=== PATIENT | female | born 1980 | race Caucasian/White ===

== ENCOUNTER → 2018-03-22 | Outpatient (CLI) | payer OTHER | LOC: M.RAD 14:18 | DX: Z12.31 Encounter for screening mammogram for malignant neoplasm of breast (principal) ==

== ENCOUNTER → 2018-10-09 | Outpatient (CLI) | payer OTHER | LOC: M.MRI 15:46 | DX: N63.11 Unspecified lump in the right breast, upper outer quadrant (principal) ==

== ENCOUNTER → 2018-10-22 | Outpatient (CLI) | payer OTHER | LOC: M.ULTRA 13:17 | DX: N63.11 Unspecified lump in the right breast, upper outer quadrant (principal) ==

== ENCOUNTER → 2018-10-29 | Outpatient (CLI) | payer OTHER ==
--- NOTE | 2018-10-31 11:08 | PATH ---
[address] [address] PATHOLOGY RPT PROCEDURE Name: COCO ARZOLA Room: [facility] Paula#: [id number] Admission: 10/29/18 Date of : 84 Discharge: Report #: [id number] Path Case #: [id number] [facility] Accession Number: [id number] . 01 Material submitted: . breast - RIGHT BREAST, 9:00, 5CMFN. Modifiers: right, 9:00 . 01 Clinical history: . 1.59 x 1.35 x 0.84 cm 9:00 5 cm from nipple . 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 See comment. (RENÉE:pit 10/30/2018) QTP/10/31/2018 . 02 Comment: Reviewed with Dr. Ana Rahman who agrees with the diagnosis. (RENÉE:[facility] 10/30/2018) . 02 Electronically signed: . Pollo Davis MD, Pathologist NPI- [id number] . 01 Gross description: . The specimen is received in formalin, labeled "Coco Arzola, right breast 9:00 5 cm from nipple". Received are multiple needle cores of fibrofatty tissue measuring 1.3 x 0.7 x 0.2 cm in aggregate dimensions. The specimen is submitted entirely in cassettes A1 through A3. The cold ischemic time is 4 minutes. The total formalin fixation time is 12 hours and 6 minutes. (CAA; 10/29/2018) QAC/QAC . 02 Pathologist provided ICD-10: N60.81 . 02 CPT . 822469 Specimen Comment: A courtesy copy of this report has been sent to Specimen Comment: [phone], , , . Specimen Comment: Report sent to ,DR CERVANTES,DR PAIGE / DR GARCIA Performed at: [address], [place], [place] [id number] MD Gilberto Beltran MD Phone: [phone] Performed at: 02 [place] [address] PATHOLOGY RPT PROCEDURE Name: COCO ARZOLA [id number] Admission: 10/29/18 Date of : 84 Discharge: Report #: [id number] Path Case #: [id number] [address], [place], [place] [id number] MD Pollo Davis MD Phone: [phone]
== END | disposition home or self-care (01) ==
LOC: M.ULTRA 08:29
DX: N60.81 Other benign mammary dysplasias of right breast (principal); Z88.8 Allergy status to other drugs, medicaments and biological substances

== ENCOUNTER → 2019-04-15 | Outpatient (CLI) | payer OTHER | LOC: M.RAD 13:57 | DX: Z12.31 Encounter for screening mammogram for malignant neoplasm of breast (principal) ==

== ENCOUNTER → 2019-05-28 | Day surgery (SDC) | payer OTHER ==
[~2019-05-28] MED LIST: TRAMADOL 50 MG50 MG PO
[2019-05-28 07:04] LABS: HEMATOCRIT 41.2 % (37.0-47.0); HEMOGLOBIN 14.2 gm/dL (12.0-15.0)
--- NOTE | 2019-05-29 09:04 | OP ---
[address] [address] OPERATIVE REPORT Name: EL GARCIA Room: [facility]#: [id number] Admission: 05/28/19 Attend Phys: Suzanne Franklin DO Discharge: Date of : 84 Report #: [id number] THIS REPORT FOR: //name// CC: Suzanne Franklin [facility] physician/PCP DATE OF SERVICE: 05/28/2019 PREOPERATIVE DIAGNOSIS: Right breast pseudoangiomatous stromal hyperplasia. POSTOPERATIVE DIAGNOSIS: Right breast pseudoangiomatous stromal hyperplasia. SURGEON: Suzanne Franklin DO. COSURGEON: Jethro Dailey, PGY-3. EXTRACTOR PLANT OPERATOR: MS Erasmo3. PROCEDURE PERFORMED: Right breast seed localized lumpectomy. ANESTHESIA: LMA and local. ESTIMATED BLOOD LOSS: 3 mL. DRAINS: None. SPECIMENS: Right breast lumpectomy. COMPLICATIONS: None. CONDITION: Stable. DISPOSITION: PACU to home. HISTORY OF PRESENT ILLNESS: The patient is a very pleasant 38-year-old female who presented to my office with a change in her mammogram. She had undergone an ultrasound-guided biopsy, which was concerning for pseudoangiomatous stromal hyperplasia. There was also the appearance of a small fibroadenoma in the area. She was consented for excision of this area under either wire or seed localization. Risks discussed included bleeding, infection, pain, scar formation, need for further surgery and risks of general anesthesia. The patient understood these risks and elected to proceed. DESCRIPTION OF PROCEDURE: The patient initially presented to preop and was then taken to Radiology where she underwent a right breast seed localization of the previously clipped mass. She then returned to [facility] where she underwent [facility] [address] [place] [address] OPERATIVE REPORT Name: EL GARCIA Room: [facility]#: [id number] Admission: 05/28/19 Attend Phys: Suzanne Franklin DO Discharge: Date of : 84 Report #: [id number] informed consent. She was taken to the OR and laid supine on the operating room table. SCDs were placed on bilateral lower extremities. Ancef was given in the perioperative period. General LMA anesthesia was induced by Anesthesia without difficulty. Right breast was prepped and draped in the standard sterile fashion. Timeout was performed to verify the patient and procedure. The area of the seed localization was easily identified using the probe. This was marked. A periareolar incision was then marked out. 10 mL of 0.5% Marcaine were injected in the area of our planned incision. A periareolar incision was then made with #15 blade. Cautery was used for hemostasis. Then, using the seed localization for guidance, we dissected down through the breast tissue. Of note, her breast tissue was extremely dense in all directions. Once we were approximately 1 cm away from the localizing clip, we then began creating a lumpectomy specimen. The area was gently elevated using an Allis clamp and utilizing cautery, a lumpectomy was performed. Specimen was then marked in the superior and lateral direction and was taken to Radiology for mammography. While we were waiting for Radiology, the lumpectomy cavity was copiously irrigated until clear and hemostasis was assured. The radiologist then called us informing us that we had both the clips and what appeared to be the area of concern. We then returned our attention to the area of our cavity. Hemostasis was again assured. Some tissue in the infra-areolar area was dissected free and was brought down to fill the cavity. This was then approximated using several stitches of 3-0 Vicryl. The cavity itself was then closed using deep and superficial stitches of 3-0 Vicryl in inverted interrupted fashion. Skin wound was closed with a running 4-0 Monocryl. A total of 30 mL of 0.5% Marcaine were used to anesthetize the wound. Wound was then cleansed and covered with Mastisol, Steri-Strips, 4 x 4's, and a Tegaderm. The patient was then allowed to awaken from anesthesia, was extubated and transported to the recovery room with no further difficulties. Counts were correct x 2 at the conclusion of the case. <ELECTRONICALLY SIGNED> By: Suzanne Franklin DO 05/29/19 0904 [id number] 1059Chfarzana Franklin DO /nt
--- NOTE | 2019-05-30 15:07 | PATH ---
[address] [address] PATHOLOGY RPT PROCEDURE Name: COCO ARZOLA Room: [facility]..#: [id number] Admission: 05/28/19 Date of : 84 Discharge: Report #: [id number] Path Case #: [id number] [facility] Accession Number: [id number] . 01 Material submitted: . breast - RIGHT BREAST LUMP STITCH LONG LAT,SHORT SUP. Modifiers: right . 01 Clinical history: . Right breast pseudo-angiomatous stromal hyperplasia . 02 Diagnosis: Right breast, lumpectomy: - Benign breast tissue with extensive pseudoangiomatous stromal hyperplasia and with usual ductal epithelial hyperplasia, cystic apocrine change, ectatic ducts, luminal calcifications and changes of prior biopsy including stromal hemosiderin deposition, negative for atypia. . (RENÉE:lance; 05/30/2019) QL 05/30/2019 1330 Local . 02 Electronically signed: . Pollo Davis MD, Pathologist NPI- [id number] . 01 Gross description: . The specimen is received in formalin, labeled "Coco Arzola, right breast, short superior, long lateral". Received is an 11 g lumpectomy specimen oriented with a short suture designating superior margin and a long suture designating the lateral margin. The specimen measures 3.9 cm from medial to lateral, 3.5 cm from superior to inferior, and 1.4 cm from anterior to posterior. The specimen is inked as follows: Superior-blue, inferior-green, lateral-red, medial-yellow, anterior-black, posterior-orange. Sectioning reveals a possible biopsy site, with a clear plastic and copper marker identified, measuring 1.0 x 0.3 x 0.3 cm. This site is 1.4 cm from the lateral margin, 1.9 cm from the medial margin, 0.3 cm from the anterior margin, 0.6 cm from the posterior margin, 0.8 cm from the superior margin, and 2.3 cm from the inferior margin. The remainder the specimen is comprised of white, fibrous to bright yellow, lobulated tissue, with the fibrous tissue encompassing approximately 35-40% of the specimen. The specimen is submitted entirely from lateral to medial aspects in cassettes A1 through A13, with the entire possible previous biopsy site submitted in cassettes A4 through A8. The sections in cassettes A3 through A11 are additionally bisected into superior and inferior aspects. The cold ischemic time is 11 minutes. The total formalin fixation time is 32 hours and 47 minutes. (CAA; 05/29/2019) QAC/QAC 05/30/[address] [place] [address] . [address] [place] [address] PATHOLOGY RPT PROCEDURE Name: COCO ARZOLA Room: [facility].#: [id number] Admission: 05/28/19 Date of : 84 Discharge: Report #: [id number] Path Case #: [id number] Pathologist provided ICD-10: N62, N64.89 . 02 CPT . 367835 Specimen Comment: A courtesy copy of this report has been sent to [phone] Specimen Comment: Report sent to Performed at: 01 [facility] [address] [facility] [address], [place], [place] [id number] MD Gilberto Beltran MD Phone: [phone] Performed at: 02 [facility] [address], [place], [place] [id number] MD Pollo Davis MD Phone: [phone]
== END | disposition home or self-care (01) ==
LOC: M.SUR 06:24
PROVIDERS: Surgery
DX: N64.89 Other specified disorders of breast (principal); N62 Hypertrophy of breast; N60.11 Diffuse cystic mastopathy of right breast; N60.41 Mammary duct ectasia of right breast; N60.81 Other benign mammary dysplasias of right breast; Z98.890 Other specified postprocedural states; Z79.899 Other long term (current) drug therapy; Z88.8 Allergy status to other drugs, medicaments and biological substances

== ENCOUNTER → 2019-11-05 | Outpatient (CLI) | payer OTHER | LOC: M.MRI 09-22 16:30 | DX: N60.91 Unspecified benign mammary dysplasia of right breast (principal); Z98.890 Other specified postprocedural states ==